=== PATIENT | female | born 1960 | race African-American/Black ===

== ENCOUNTER 2019-05-26 11:46 | Emergency (ER) | payer OTHER, MEDICAID ==
[~2019-05-26] VITALS: Ht 165.1 cm; Wt 130.0 kg
[2019-05-26] MEDS ORDERED: SODIUM BICARBONATE 8.4% 1 MEQ/ML 50ML SYR IV ONE ×3 (11:52→12:30)
[2019-05-26] MEDS ORDERED: NOREPINEPHRINE 4MG/250ML PMX 250 ML IV ONE (11:58)
[2019-05-26] MEDS ORDERED: EPINEPHRINE 1 MG in SODIUM CHLORIDE 0.9% 249 ML IV PRN (12:00)
[2019-05-26] MEDS ORDERED: ALTEPLASE 100MG/VIAL IV ONE (12:00)
[2019-05-26] MEDS ORDERED: DOPAMINE 400MG/250ML PREMIX 250 ML IV ONE (12:01)
[2019-05-26] MEDS ORDERED: INSULIN LISPRO 100 UNITS/ML SUBCUT ONE (12:06)
[2019-05-26] MEDS ORDERED: INSULIN REGULAR (HUMULIN R) 300UNITS/3ML ONE (12:09)
[2019-05-26 12:11] VITALS: BP 0/0
[2019-05-26] MEDS ORDERED: DEXTROSE 50% WATER 50ML SYRINGE IV ONE (12:30)
[2019-05-26] MEDS ORDERED: ATROPINE SULFATE 1MG/10ML SYR ONE (12:30)
[2019-05-26] MEDS ORDERED: MAGNESIUM SULFATE 4G IN WATER 100ML PREMIX IV ONE (12:30)
[2019-05-26] MEDS ORDERED: EPINEPHRINE 0.1MG/ML (1:10,000) 10ML SYR ONE (12:30)
[2019-05-26] MEDS ORDERED: CALCIUM CHLORIDE 1GM/10ML SYR IV ONE (12:30)
== END 2019-05-26 14:15 | disposition expired ==
LOC: ER 11:46
DX: I46.9 Cardiac arrest, cause unspecified (principal); E87.5 Hyperkalemia; E11.9 Type 2 diabetes mellitus without complications; N18.6 End stage renal disease; Z99.2 Dependence on renal dialysis; Z98.890 Other specified postprocedural states; Z91.018 Allergy to other foods; Z88.0 Allergy status to penicillin
CPT/HCPCS: 82962; 93005; 99291; 99292; J0461; J1265; J1815; J3475; J3490; J2997